=== PATIENT | male | born 1990 | race Caucasian/White ===

== ENCOUNTER 2019-07-17 09:51 | Observation (INO) | payer OTHER ==
[~2019-07-17] VITALS: Ht 185.4 cm; Wt 90.6 kg
[2019-07-17 10:04] LABS: PCO2 Arterial 14.6 mmHg (35-45); PO2 Arterial 167 mmHg (80-100); pH Blood Arterial 7.66 (7.35-7.45)
[2019-07-17 10:10] LABS: BASOPHILS ABSOLUTE AUTO 0.07 K/mm3 (0.00-0.23); BASOPHILS PERCENT AUTO 1 % (0-2); EOSINOPHILS ABSOLUTE AUTO 0.56 K/mm3 (0.00-0.68); EOSINOPHILS PERCENT AUTO 4 % (0-6); Hematocrit 49.6 % (37.0-53.0); Hemoglobin 17.3 g/dL (13.5-17.5); IMMATURE GRAN ABSOLUTE AUTO 0.15 K/mm3 (0.00-0.10); IMMATURE GRAN PERCENT AUTO 1 % (0-1); LYMPHOCYTES ABSOLUTE AUTO 4.94 K/mm3 (0.84-5.20); LYMPHOCYTES PERCENT AUTO 37 % (21-46); MONOCYTES PERCENT AUTO 11 % (4-13); Mean Corpuscular HGB Conc 34.9 g/dL (31.5-36.5); Mean Corpuscular Volume 92 fL (80-100); Mean Platelet Volume 8.9 fL (9.1-12.4); NEUTROPHILS PERCENT AUTO 47 % (41-73); Platelet Count 351 K/mm3 (150-400); RDW Coefficient Variation 12.7 % (11.7-14.2); RDW Standard Deviation 43.1 fL (35.1-46.3); White Blood Cell Count 13.32 K/mm3 (4.00-11.30)
[2019-07-17 10:22] LABS: Anion Gap 12 mmol/L (6-16); Blood Urea Nitrogen 11 mg/dL (8-24); Bun/Creatinine Ratio 12.2 (12.0-20.0); CO2, Blood 18 mmol/L (21-32); Calcium, Blood 9.7 mg/dL (8.5-10.1); Chloride, Blood 108 mmol/L (98-108); Glomerular Filtration Rate >60 (60-); Glucose, Blood 108 mg/dL (70-99); Potassium, Blood 4.1 mmol/L (3.5-5.5); Sodium, Blood 138 mmol/L (136-145)
[2019-07-17] MEDS ORDERED: ALBU90OI INH (13:51)
[2019-07-17] MEDS ORDERED: BUDE10.22 INH (13:52)
--- NOTE | 2019-07-17 14:35 | NUR ---
PATIENT TO THE FLOOR, WEIGHED. HE IS ALERT AND ORIENTED, PLEASANT, AND APPROPRIATE. NO ACUTE CONCERNS FROM THE PATIENT HE STATES THAT HE EXPECTS TO BE HERE OVERNIGHT. TELEMETRY BOX IS IN PLACE, PATIENT IS AWARE THAT HE IS NOT ABLE TO GO OUTSIDE AND SMOKE. HE IS A CURRENT 3/4 PPD SMOKER, AND HAS NICOTINE GUM ORDERED BY DR. FRIAS. PATIENT IS AWARE. RESPIRATORY PANEL TO BE COLLECTED, AND PATIENT WILL BE STARTED ON THE ONE BAG OF FLUIDS THAT IS ORDERED. HE IS INDEPENDENT IN THE ROOM AND VERY POLITE. CURRENTLY STATES HE HAS NO APPETITE BUT DOES NOT KNOW WHY. HE HAS BEEN OUT OF HIS HOME MEDICATIONS FOR A MONTH AND STATES HE HAS BEEN TRYING TO ESTABLISH WITH A PRIMARY BUT HAS BEEN BOOKED OUT OVER 3 MONTHS TIME MULTIPLE TIMES.
[2019-07-17 16:35] LABS: Adenovirus Not Detected (NOT DETECT); Bordetella pertussis Not Detected (NOT DETECT); Chlamydophila pneumoniae Not Detected (NOT DETECT); Coronavirus 229E Not Detected (NOT DETECT); Coronavirus HKU1 Not Detected (NOT DETECT); Coronavirus NL63 Not Detected (NOT DETECT); Coronavirus OC43 Not Detected (NOT DETECT); Human Metapneumovirus Not Detected (NOT DETECT); Human Rhinovirus/Enterovirus Not Detected (NOT DETECT); Influenza A Not Detected (NOT DETECT); Influenza A/2009-H1 Not Detected (NOT DETECT); Influenza A/H1 Not Detected (NOT DETECT); Influenza A/H3 Not Detected (NOT DETECT); Influenza B Not Detected (NOT DETECT); Mycoplasma pneumoniae Not Detected (NOT DETECT); Parainfluenza Virus 1 Not Detected (NOT DETECT); Parainfluenza Virus 2 Not Detected (NOT DETECT); Parainfluenza Virus 3 Not Detected (NOT DETECT); Parainfluenza Virus 4 Not Detected (NOT DETECT); Respiratory Syncytial Virus Not Detected (NOT DETECT)
--- NOTE | 2019-07-17 16:53 | NUR ---
SHIFT SUMMARY PATIENT PLEASANT. RESPIRATORY PANEL CAME BACK NEGATIVE. NO ACUTE CONCERNS. NO SHORTNESS OF BREATH SINCE ARRIVING TO THE FLOOR. TELEMETRY IN PLACE. PATIENT IS INDEPENDENT IN THE ROOM. NICOTINE GUM AVAILABLE Q2 PRN. PATIENT IS AWARE THAT THIS IS AVAILABLE IF HE DOES GET A CRAVING. PATIENT IS AWARE THAT HE IS NOT CURRENTLY SUPPOSED TO GO OUTSIDE AND SMOKE THIS MAY TRIGGER ANOTHER ATTACK. HE IS A 3/4 PPD SMOKER. HE ALSO STATES THAT HE DOES NOT DRINK ALCOHOL MINUS 1-2 TIMES A YEAR. DENIES ANY NUMBNESS OR TINGLING. LUNGS SOUND CLEAR THROUGHOUT. NO CURRENT ACUTE CONCERNS.
--- NOTE | 2019-07-17 18:27 | NUR ---
patient started complaining of significant l lower lobe pain under his nipple. patient is now having a breathing treatment. telemetry noted no change in rate or rhythm when the pain started. listened to the patient's lungs and there was significant wheezes and tightness in the left lower lobe. called for breathing treatment. patient became audibly wheezy and tight throughout.
--- NOTE | 2019-07-17 21:23 | NUR ---
PATIENT RESTING QUIETLY IN BED. C/O PAIN TO CHEST WITH DEEP BREATH, WHEEZES T/O CONTINUES. UP IN ROOM AND ON ROOM ARE WITHOUT DIFFICULTY.
[2019-07-18 04:41] LABS: Hematocrit 46.8 % (37.0-53.0); Hemoglobin 15.9 g/dL (13.5-17.5); Mean Corpuscular HGB 31.7 pg (26.0-34.0); Mean Corpuscular Volume 93 fL (80-100); Mean Platelet Volume 9.1 fL (9.1-12.4); Platelet Count 291 K/mm3 (150-400); Red Blood Cell Count 5.01 M/mm3 (4.30-5.90)
--- NOTE | 2019-07-18 05:54 | NUR ---
SUMMARY PATIENT RESTING QUIETLY T/O NIGHT. VERBALIZED THAT HE DIDN'T SLEEP DUE TO STAFF BEING IN HIS ROOM FREQUENTLY. LUNG SOUNDS CONTINUE TO HAVE WHEEZES T/O MAINTAINING GOOD BIOX T/O NIGHT. PATIENT ABLE TO AMB IN ROOM WITHOUT DIFFICULTY.
--- NOTE | 2019-07-18 10:34 | NUR ---
POST SHOWER SOB PT LUNGS WHERE MILDLY WHEEZEY T/O. HE HAD GONE DOWNSTAIRS TO GET AN ORANGE JUICE. RETURNED AND TOOK A SHOWER. HE STARTED TO STRUGGLE. RESP RATE INCREASED INTO THE 50'S. SAT 100% RA. FACE DUSKY. AUDIBLE WHEEZES. CALLED FOR STAT BREATHING TREATMENT. CRISSY TAPIA CAME FOR BREATHING TREATMENT. DR LANIER CALLED AFTER FIRST BREATHING TREATMENT WAS NOT EFFECTIVE. ORDER RECEIVED. PT C/O OF LEFT LOWER RIB CAGE/LUQ PAIN THAT INCREASED WITH WORK OF BREATHING. ONE HOUR TIM STARTED. PT ALMOST IMMEDIATELY RELAXED. COOL CLOTH PLACED ON BACK OF HIS NECK FOR COMFORT. PT CURRENTLY RESTING, LAYING BACK COMFORTABLY BREATHING. COMPLETEING THE HOUR NEB. CONTINUE POT.
[2019-07-18] MEDS ORDERED: PRED20 PO (16:27)
--- NOTE | 2019-07-18 16:57 | NUR ---
DISCHARGE HOME PT DISCHARGED HOME. PT STATED HE WAS INITIATING CARE WITH [facility]. CALLED THE CLINIC TO GET A F/U APPOINTMENT. NO NEW PT PACKET HAS BEEN RECEIVED. CALLED [facility]. THEY WOULDN'T SO AN APPOINTMENT UNTIL PT CAME IN PHYSICALLY WITH HIS INSURANCE CARD. TOLD PT. HE WILL US THE [facility] FOR REFILLS UNTIL ABLE TO BE SEEN MY MD. CONTINUE POT.
== END 2019-07-18 16:54 | disposition home or self-care (01) ==
LOC: ER 09:51 → PCU 09:52
PROVIDERS: Emergency Medicine; Nurse Practitioner Acute Care; ADMIT Internal Medicine
DX: J96.01 Acute respiratory failure with hypoxia (principal); J45.901 Unspecified asthma with (acute) exacerbation; F17.210 Nicotine dependence, cigarettes, uncomplicated; F41.9 Anxiety disorder, unspecified; D72.829 Elevated white blood cell count, unspecified; E87.3 Alkalosis; Z79.899 Other long term (current) drug therapy; Z86.19 Personal history of other infectious and parasitic diseases
CPT/HCPCS: 0099U; 36415; 36600; 71045; 80048; 82803; 85025; 85027; 93005; 93010; 94640; 94644; 94760; 96361; 96365; 96366; 96375; 99285-25; A9270; G0378; J2060; J2930; J3475; J7030; J7512

== ENCOUNTER 2019-10-10 07:45 | Observation (INO) | payer OTHER ==
[~2019-10-10] VITALS: Ht 172.7 cm; Wt 91.3 kg
[~2019-10-10 07:45] MED LIST: ALBU90OI INH; BUDE10.22 INH; PRED20 PO
[2019-10-10 08:01] LABS: BASOPHILS ABSOLUTE AUTO 0.08 K/mm3 (0.00-0.23); BASOPHILS PERCENT AUTO 1 % (0-2); EOSINOPHILS ABSOLUTE AUTO 0.42 K/mm3 (0.00-0.68); EOSINOPHILS PERCENT AUTO 4 % (0-6); Hematocrit 51.2 % (37.0-53.0); Hemoglobin 17.5 g/dL (13.5-17.5); IMMATURE GRAN ABSOLUTE AUTO 0.08 K/mm3 (0.00-0.10); IMMATURE GRAN PERCENT AUTO 1 % (0-1); LYMPHOCYTES ABSOLUTE AUTO 4.23 K/mm3 (0.84-5.20); LYMPHOCYTES PERCENT AUTO 42 % (21-46); MONOCYTES ABSOLUTE AUTO 1.14 K/mm3 (0.16-1.47); MONOCYTES PERCENT AUTO 11 % (4-13); Mean Corpuscular HGB Conc 34.2 g/dL (31.5-36.5); Mean Corpuscular Volume 94 fL (80-100); NEUTROPHILS PERCENT AUTO 41 % (41-73); Platelet Count 297 K/mm3 (150-400); RDW Coefficient Variation 12.1 % (11.7-14.2); RDW Standard Deviation 42.2 fL (35.1-46.3); Red Blood Cell Count 5.47 M/mm3 (4.30-5.90); White Blood Cell Count 10.15 K/mm3 (4.00-11.30)
[2019-10-10 08:16] LABS: Alanine Aminotransfer (ALT/SGP 76 U/L (12-78); Albumin, Blood 4.2 g/dL (3.4-5.0); Alk Phos 111 U/L (50-136); Anion Gap 10 mmol/L (6-16); Aspartate Aminotrans (AST/SGOT 63 U/L (12-37); Bilirubin, Total 0.6 mg/dL (0.1-1.0); Blood Urea Nitrogen 15 mg/dL (8-24); Bun/Creatinine Ratio 16.2 (12.0-20.0); CO2, Blood 23 mmol/L (21-32); Calcium, Blood 9.5 mg/dL (8.5-10.1); Chloride, Blood 107 mmol/L (98-108); Creatinine, Blood 0.93 mg/dL (0.60-1.20); Globulin, Blood 4.3 g/dL (2.2-4.0); Glomerular Filtration Rate >60 (60-); Glucose, Blood 109 mg/dL (70-99); Potassium, Blood 4.3 mmol/L (3.5-5.5); Sodium, Blood 140 mmol/L (136-145); Total Protein, Blood 8.5 g/dL (6.4-8.2)
[2019-10-10 12:35] LABS: U Amphetamine Screen Not Detected; U Barbituate Screen Not Detected; U Benzodiazapine Screen DETECTED; U Buprenorphine Screen Not Detected; U Cannabinoids Screen DETECTED; U Cocaine Screen Not Detected; U Methadone Screen Not Detected; U Methamphetamine Screen Not Detected; U Opiates Screen Not Detected; U Oxycodone Screen Not Detected; U Phencyclidine Screen Not Detected; U Propoxyphene Screen Not Detected
--- NOTE | 2019-10-10 15:11 | NUR ---
TRANSFER TO PCU PT CALLED TO REQUEST RT TREATMENT AND SHORTLY AFTER BECAME VERY SOB, SEVERE ASTHMA ATTACK. RR 24 BUT O2 SATS AT 99% ON ROOM AIR. RT AT BEDSIDE, DR SHABAZZ CAME TO BEDSIDE, PT VERY ANXIOUS AND HUNCHED. VERY LOUD BREATHING AND ONLY ABLE TO GET ONE WORD OUT AT A TIME. DR SHABAZZ ORDERED PCU TRANSFER. PT GIVEN IV TORADOL FOR CHEST PAIN (DR SHABAZZ INFORMED OF CHEST PAIN), WHICH HELPED. REPORT GIVEN TO MARIA R PT TAKEN TO PCU 15 BY TOMAS
--- NOTE | 2019-10-10 18:19 | NUR ---
SHIFT SUMMARY. NO ACUTE NEGATIVE CHANGES NOTED SINCE PT TRANSFERED TO PCU. PT'S BREATHING HAS GREATLY IMPROVED, NO WHEEZES HEARD UPON AUSCULTATION. PT MEDICATED FOR ANXEITY PER EMAR. PT WAS ON BIPAP APROX 1 HOUR THEN SWITCHED TO RA WITH O2 SATS >94%. PT'S VS STABLE AT THIS TIME. PT IND IN THE ROOM. CALL LIGHT IN REACH, WILL CONTINUE TO MONITOR UNTIL REPORT IS GIVEN TO ONCOMING RN.
--- NOTE | 2019-10-11 04:56 | NUR ---
ASSUMED CARE AT 1900. CALM EASY BREATHING ALL NOC UNTIL 324. INSPIRATORY AND EXPIRATORY WZ T/O BOTH LUNGS WHEN THIS RN LISTENED. RA SATS WNL . ON DEEP INSPIRATION REPORTS MILD MIDSTERNAL CHEST PRESSURE/PAIN. USUALLY NOT NOTICED W/ NORMAL BREATHING. REFUSED TORDOL. "IT DIDNT WORK FOR ME". SLEEPING WELL CALM AND QUIET DARK ROOM. WHEN AT 324 OOB TO USE URINAL AND REMOVE SCDS W/ DIFFICULTY, SEVERE ASMATIC TACHEPNEA AND WHEEZING WAS OCCURING AND ESCALATING QUICKLY. SEVERE AUDIBLE WZ AND BREATHING TX IMMEDIATE AND FAIRLY CONTINUOUS UNTIL PLACED CALL TO DR SR AND COMING TO ROOM QUICKLY, A CONTINUOUS NEB ORDERED. ALSO ATIVAN IV GIVEN MIKE. SOON SOLUMEDROL IV. AGREES TO WEAR BIPAP FOR ABOUT 1 HR . NOW ON RA ASTHMA EPISODE SUBSIDING. NOTED ST TO 140 THEN BACK DOWN TO APPROX 104. THRU MOST OF NOC IN 90'S. REPORTS INSPIRATORY CP/PRESSURE MID STERNAL BECAME A 10/10. CONT TO REFUSE TORDOL AND REQUESTS TYLENOL FROM AND GIVEN.WILL CHECK BACK TO EVAL RESULTS
--- NOTE | 2019-10-11 08:37 | NUR ---
AM NOTE... ASSUMED CARE OF PT APROX 0700. PT IS A&Ox4 AND IND IN THE ROOM. PT WAS ADMITTED FOR ASTHMA EXAC. PT IS ON RA WITH O2 SATS >94%. L/S EXP AND INSP WHEEZES T/O. PT IS IN NSR IN THE 90'S, NO EDEMA NOTED ON ASSESSMENT. CALL LIGHT IN REACH, WILL CONTINUE TO MONITOR.
--- NOTE | 2019-10-11 17:50 | NUR ---
SHIFT SUMMARY... NO ACUTE NEGATIVE CHANGES NOTED THIS SHIFT. PT HAS BEEN ON RA T/O SHIFT. PT HAD AN EPISODE OF SOB WHICH HE CALLED AN "ATTACK." RT WAS CALLED AND A BREATHING TX WAS GIVEN. PT RECOVERED WELL. PT GOT UP AND WALKED AROUND THE UNTIL 2 TIMES THIS SHIFT. PT'S VS STABLE. CALL LIGHT IN REACH, WILL CONTINUE TO MONITOR UNTIL REPORT IS GIVEN TO ONCOMING RN.
--- NOTE | 2019-10-12 06:00 | NUR ---
ASSUMED CARE AT 0100. SEE ASSESSMENT FOR GENERAL REVIEW. ALLOWED TO SLEEP ALL NOC. AWAKE THIS AM W/ C/O LT CHEST SORENESS ON DEEP INSPIRAATION ONLY. TYLENOL ONLY REQUESTED AND GOOD RELIEF. NO ACUTE CHANGE OR BREATHING INPAIRMENT. NO ASTHMA FLARE UP./ NO ANXIETY REPORTED. SR MOSTLY RARE ST WHEN OOB
--- NOTE | 2019-10-12 12:44 | NUR ---
TRANSFER RECEIVED TO ROOM 210 VIA W/C. AMBULATING IN ROOM, SPEAKING IN FULL SENTENCES AND APPEARING IN NO ACUTE DISTRESS. REPORTS NO DYSPNEA OR CHEST DISCOMFORT. ORIENTED TO ROOM, CALL SYSTEM.
--- NOTE | 2019-10-12 16:36 | NUR ---
AMA PT LEFT AMA AT APROX 1632. PT STATES HE HAS TO LEAVE IN ORDER TO KEEP HIS JOB. EDUCATED ON THE RISKS OF LEAVING/BENNEFITS OF STAYING AND PT VERBALIZED UNDERSTANDING. PT EDUCATED ON THE NEED TO FOLLOW UP WITH [facility] TO ESTABLISH WITH PRIMARY CARE, VERBALIZED UNDERSTANDING. IV REMOVED, PT TOLERATED WELL. DOES NOT APPEAR TO BE IN ANY RESPIRATORY DISTRESS AT TIME OF DISCARGE.
== END 2019-10-12 16:33 | disposition left against medical advice (07) ==
LOC: ER 07:45 → MEDS 07:46 → PCU 07:46 → MEDS 11:44 → PCU 15:01 → SURS 10-12 12:37
PROVIDERS: Emergency Medicine; Nurse Practitioner Acute Care; ADMIT Family Medicine
DX: J45.901 Unspecified asthma with (acute) exacerbation (principal); J96.00 Acute respiratory failure, unspecified whether with hypoxia or hypercapnia; B18.2 Chronic viral hepatitis C; F17.200 Nicotine dependence, unspecified, uncomplicated; Z79.899 Other long term (current) drug therapy; Z79.51 Long term (current) use of inhaled steroids
CPT/HCPCS: 71045; 80053; 85025; 93005; 93010; 94640; 94644; 94660; 94762; 96361; 96365; 96366; 96375; 96376; 99285-25; A9270; G0378; J1885; J2060; J2930; J3475; J7030

== ENCOUNTER 2019-12-17 05:34 | Emergency (ER) | payer OTHER ==
[~2019-12-17] VITALS: Ht 185.4 cm; Wt 81.7 kg
[2019-12-17 05:56] LABS: BASOPHILS ABSOLUTE AUTO 0.04 K/mm3 (0.00-0.23); BASOPHILS PERCENT AUTO 1 % (0-2); EOSINOPHILS ABSOLUTE AUTO 0.04 K/mm3 (0.00-0.68); EOSINOPHILS PERCENT AUTO 1 % (0-6); Hematocrit 46.9 % (37.0-53.0); Hemoglobin 16.4 g/dL (13.5-17.5); IMMATURE GRAN ABSOLUTE AUTO 0.06 K/mm3 (0.00-0.10); IMMATURE GRAN PERCENT AUTO 1 % (0-1); LYMPHOCYTES ABSOLUTE AUTO 1.05 K/mm3 (0.84-5.20); LYMPHOCYTES PERCENT AUTO 15 % (21-46); MONOCYTES ABSOLUTE AUTO 1.25 K/mm3 (0.16-1.47); MONOCYTES PERCENT AUTO 18 % (4-13); Mean Corpuscular HGB 32.2 pg (26.0-34.0); Mean Corpuscular Volume 92 fL (80-100); Mean Platelet Volume 9.1 fL (9.1-12.4); NEUTROPHILS ABSOLUTE AUTO 4.62 K/mm3 (1.96-9.15); NEUTROPHILS PERCENT AUTO 65 % (41-73); Platelet Count 174 K/mm3 (150-400); RDW Coefficient Variation 13.1 % (11.7-14.2); RDW Standard Deviation 44.5 fL (35.1-46.3); White Blood Cell Count 7.06 K/mm3 (4.00-11.30)
[2019-12-17 06:22] LABS: Alanine Aminotransfer (ALT/SGP 64 U/L (12-78); Albumin, Blood 3.7 g/dL (3.4-5.0); Albumin/Globulin Ratio 0.9 (0.8-1.8); Alk Phos 101 U/L (50-136); Anion Gap 10 mmol/L (6-16); Aspartate Aminotrans (AST/SGOT 71 U/L (12-37); Bilirubin, Total 0.5 mg/dL (0.1-1.0); Blood Urea Nitrogen 15 mg/dL (8-24); CO2, Blood 20 mmol/L (21-32); Chloride, Blood 107 mmol/L (98-108); Creatinine, Blood 0.94 mg/dL (0.60-1.20); Glomerular Filtration Rate >60 (60-); Glucose, Blood 114 mg/dL (70-99); Magnesium, Blood 1.7 mg/dL (1.6-2.4); Potassium, Blood 3.5 mmol/L (3.5-5.5); Sodium, Blood 137 mmol/L (136-145); Total Protein, Blood 7.7 g/dL (6.4-8.2); Troponin I <0.015 ng/mL (0.000-0.040)
[2019-12-17 07:19] LABS: Adenovirus Not Detected (NOT DETECT); Bordetella pertussis Not Detected (NOT DETECT); Chlamydophila pneumoniae Not Detected (NOT DETECT); Coronavirus 229E Not Detected (NOT DETECT); Coronavirus HKU1 Not Detected (NOT DETECT); Coronavirus NL63 Not Detected (NOT DETECT); Coronavirus OC43 Not Detected (NOT DETECT); Human Metapneumovirus Not Detected (NOT DETECT); Human Rhinovirus/Enterovirus Not Detected (NOT DETECT); Influenza A/2009-H1 Detected (NOT DETECT); Influenza A/H1 Not Detected (NOT DETECT); Influenza A/H3 Not Detected (NOT DETECT); Influenza B Not Detected (NOT DETECT); Mycoplasma pneumoniae Not Detected (NOT DETECT); Parainfluenza Virus 1 Not Detected (NOT DETECT); Parainfluenza Virus 2 Not Detected (NOT DETECT); Parainfluenza Virus 3 Not Detected (NOT DETECT); Parainfluenza Virus 4 Not Detected (NOT DETECT); Respiratory Syncytial Virus Not Detected (NOT DETECT)
[2019-12-17] MEDS ORDERED: Prednisone20 MG PO (08:48)
[2019-12-17] MEDS ORDERED: ALBU90OI INH (08:48)
== END 2019-12-17 09:03 | disposition home or self-care (01) ==
LOC: ER 05:34
PROVIDERS: Emergency Medicine
DX: J45.901 Unspecified asthma with (acute) exacerbation (principal); Z79.899 Other long term (current) drug therapy; F17.210 Nicotine dependence, cigarettes, uncomplicated
CPT/HCPCS: 0099U; 71045; 80053; 83735; 83880; 84484; 85025; 93005; 93010; 94644; 96374; 99285-25; J2930

== ENCOUNTER 2020-03-05 06:15 | Emergency (ER) | payer OTHER ==
[~2020-03-05] VITALS: Ht 182.9 cm; Wt 90.7 kg
[~2020-03-05 06:15] MED LIST changes: +Prednisone20 MG PO
[2020-03-05 06:31] LABS: BASOPHILS ABSOLUTE AUTO 0.05 K/mm3 (0.00-0.23); BASOPHILS PERCENT AUTO 1 % (0-2); EOSINOPHILS ABSOLUTE AUTO 0.62 K/mm3 (0.00-0.68); EOSINOPHILS PERCENT AUTO 6 % (0-6); Hematocrit 47.7 % (37.0-53.0); Hemoglobin 16.6 g/dL (13.5-17.5); IMMATURE GRAN ABSOLUTE AUTO 0.07 K/mm3 (0.00-0.10); IMMATURE GRAN PERCENT AUTO 1 % (0-1); LYMPHOCYTES ABSOLUTE AUTO 3.27 K/mm3 (0.84-5.20); LYMPHOCYTES PERCENT AUTO 33 % (21-46); MONOCYTES ABSOLUTE AUTO 1.18 K/mm3 (0.16-1.47); MONOCYTES PERCENT AUTO 12 % (4-13); Mean Corpuscular HGB 32.1 pg (26.0-34.0); Mean Corpuscular HGB Conc 34.8 g/dL (31.5-36.5); Mean Corpuscular Volume 92 fL (80-100); Mean Platelet Volume 9.2 fL (9.1-12.4); NEUTROPHILS ABSOLUTE AUTO 4.77 K/mm3 (1.96-9.15); NEUTROPHILS PERCENT AUTO 48 % (41-73); Platelet Count 239 K/mm3 (150-400); RDW Coefficient Variation 12.7 % (11.7-14.2); RDW Standard Deviation 43.3 fL (35.1-46.3); Red Blood Cell Count 5.17 M/mm3 (4.30-5.90); White Blood Cell Count 9.96 K/mm3 (4.00-11.30)
[2020-03-05 06:49] LABS: Anion Gap 8 mmol/L (6-16); Blood Urea Nitrogen 13 mg/dL (8-24); Bun/Creatinine Ratio 13.8 (12.0-20.0); CO2, Blood 21 mmol/L (21-32); Calcium, Blood 8.7 mg/dL (8.5-10.1); Chloride, Blood 109 mmol/L (98-108); Creatinine, Blood 0.94 mg/dL (0.60-1.20); Glomerular Filtration Rate >60 (60-); Glucose, Blood 95 mg/dL (70-99); Potassium, Blood 4.4 mmol/L (3.5-5.5); Sodium, Blood 138 mmol/L (136-145)
[2020-03-05] MEDS ORDERED: ALBU90OI INH (08:14)
[2020-03-05] MEDS ORDERED: ALBU2.5V5 INH (08:14)
[2020-03-05] MEDS ORDERED: PRED20 PO (08:14)
== END 2020-03-05 08:54 | disposition home or self-care (01) ==
LOC: ER 06:15
PROVIDERS: Emergency Medicine
DX: J45.901 Unspecified asthma with (acute) exacerbation (principal); Z79.899 Other long term (current) drug therapy; Z87.891 Personal history of nicotine dependence
CPT/HCPCS: 36415; 71045; 80048; 85025; 94644; 96365; 96375; 99285-25; J2930; J3475

== ENCOUNTER 2021-08-31 02:31 | Inpatient (IN) | payer OTHER ==
[~2021-08-31] VITALS: Ht 182.9 cm; Wt 93.0 kg
[~2021-08-31 02:31] MED LIST changes: +ALBU2.5V5 INH
[2021-08-31 04:22] LABS: Influenza A, PCR NEGATIVE (NEGATIVE); Influenza B, PCR NEGATIVE (NEGATIVE); Resp Syncytial Virus, PCR NEGATIVE (NEGATIVE); SARS-Cov-2 (COVID-19) PCR, MMC NEGATIVE (NEGATIVE)
--- NOTE | 2021-08-31 06:09 | NUR ---
ASSUMPTION OF CARE NOTE THIS NURSE ASSUMED CARE AT 0545, PT CAME TO PCU ON RA, WHEEZES NOTED BOTH ON INSPIRATION AND EXPIRATION. RESPIRATORY THERAPY CAME ARRIVED TO BEDSIDE AND PUT PT ON CPAP, PRESSURE 7, FIO2 30%. SPO2 99%. PT REPORTED PAIN IN LEFT SIDE, MEDICATED PER EMAR. CASEWORK SUPERVISOR IN PLACE, PER REPORT PT IS SINUS TACH 103. PT IS STEADY ON FEET AND INDEPENDENT BUT WAS ASKED BY THIS NURSE TO UTILIZE BEDSIDE URINAL TO CONSERVE ENERGY/DUE TO BEING ON CPAP. PT IS PLEASANT AND COOPERATIVE WITH CARE, IS ALERT AND ORIENTED X4. IV LOCATED IN LEFT AC IS SALINE LOCKED, NON-SCID SOCKS PROVIDED AND PT WAS ORIENTED TO PCU UNIT, ROOM, AND CALL LIGHT. BED IS IN LOW, CALL LIGHT IN REACH. WILL CONTINUE TO MONITOR.
[2021-08-31 06:30] LABS: BASOPHILS ABSOLUTE AUTO 0.04 K/mm3 (0.00-0.23); BASOPHILS PERCENT AUTO 0 % (0-2); EOSINOPHILS ABSOLUTE AUTO 0.05 K/mm3 (0.00-0.68); EOSINOPHILS PERCENT AUTO 0 % (0-6); Hematocrit 46.8 % (37.0-53.0); Hemoglobin 16.2 g/dL (13.5-17.5); IMMATURE GRAN ABSOLUTE AUTO 0.13 K/mm3 (0.00-0.10); IMMATURE GRAN PERCENT AUTO 1 % (0-1); LYMPHOCYTES ABSOLUTE AUTO 0.87 K/mm3 (0.84-5.20); LYMPHOCYTES PERCENT AUTO 5 % (21-46); MONOCYTES ABSOLUTE AUTO 0.62 K/mm3 (0.16-1.47); MONOCYTES PERCENT AUTO 4 % (4-13); Mean Corpuscular HGB 32.8 pg (26.0-34.0); Mean Corpuscular HGB Conc 34.6 g/dL (31.5-36.5); Mean Corpuscular Volume 95 fL (80-100); Mean Platelet Volume 9.6 fL (9.1-12.4); NEUTROPHILS ABSOLUTE AUTO 15.02 K/mm3 (1.96-9.15); NEUTROPHILS PERCENT AUTO 90 % (41-73); Platelet Count 246 K/mm3 (150-400); RDW Coefficient Variation 12.6 % (11.7-14.2); RDW Standard Deviation 43.8 fL (35.1-46.3); Red Blood Cell Count 4.94 M/mm3 (4.30-5.90); White Blood Cell Count 16.73 K/mm3 (4.00-11.30)
[2021-08-31 08:51] LABS: Anion Gap 8 mmol/L (6-16); Blood Urea Nitrogen 17 mg/dL (8-24); Bun/Creatinine Ratio 17.2 (12.0-20.0); CO2, Blood 23 mmol/L (21-32); Calcium, Blood 8.7 mg/dL (8.5-10.1); Chloride, Blood 106 mmol/L (98-108); Creatinine, Blood 0.99 mg/dL (0.60-1.20); Glomerular Filtration Rate >60 (60-); Glucose, Blood 130 mg/dL (70-99); Potassium, Blood 3.5 mmol/L (3.5-5.5); Sodium, Blood 137 mmol/L (136-145)
[2021-08-31 11:22] LABS: Source, Urine Clean Catch
[2021-08-31 11:34] LABS: Bilirubin, Urine Neg (Neg); Blood, Urine Neg (Neg); Glucose Qualitative, Urine Neg (Neg); Ketones, Urine 2+ (Neg); Leukocyte Esterase, Urine 1+ (Neg); Nitrite, Urine Neg (Neg); Protein, Urine 2+ (Neg); Urobilinogen, Urine NORM (Normal)
[2021-08-31 12:32] LABS: Appearance, Urine Hazy (Clear); Color, Urine Amber (P-Yellow)
[2021-08-31 12:33] LABS: Bacteria Few /hpf; Mucus Heavy (0-Heavy); Red Blood Cells, Urine 0-2 /hpf (0-2); Squamous Epithelial Cells Few /hpf (Few)
[2021-08-31 13:00] LABS: U Cannabinoids Screen DETECTED; U Opiates Screen DETECTED
[2021-08-31 13:01] LABS: U Amphetamine Screen Not Detected; U Barbituate Screen Not Detected; U Benzodiazapine Screen Not Detected; U Buprenorphine Screen Not Detected; U Cocaine Screen Not Detected; U Methadone Screen Not Detected; U Methamphetamine Screen Not Detected; U Oxycodone Screen Not Detected; U Phencyclidine Screen Not Detected; U Propoxyphene Screen Not Detected
--- NOTE | 2021-08-31 18:28 | NUR ---
SHIFT SUMMARY PT HAS BEEN RESTING IN BED TODAY. PT HAS SAT UP AT THE EDGE OF BED AND LAID IN BED. PT HAD MULTIPLE EPISODES OF INCREASED WORK OF BREATHING WITH INCREASED RESPIRATORY RATE, PT WAS TREATED WITH ANXIOLYTICS, POSITIONING, AND THERAPEUTIC COMMUNICATION. PT HAS BEEN COOPERATIVE AND CALLS APPROPRIATELY.
--- NOTE | 2021-09-01 03:00 | NUR ---
PATIENT C/O MIDSTERNAL CHEST PAIN, RESPIRATIONS INCREASED 16 TO 34 PATIENT WAS PUT BACK ON THE CPAP EDUCATED ON TAKING LONG SLOW BREATHES, RESPIRATORY WAS CALLED AND PATIENT WAS GIVEN BREATHING TREATMENT, AND ATIVAN GIVEN PATIENT EXHIBITING INCREASED ANXITET R/T BREATHING.
[2021-09-01 03:44] LABS: BASOPHILS ABSOLUTE AUTO 0.03 K/mm3 (0.00-0.23); BASOPHILS PERCENT AUTO 0 % (0-2); EOSINOPHILS PERCENT AUTO 0 % (0-6); Hematocrit 47.3 % (37.0-53.0); Hemoglobin 16.2 g/dL (13.5-17.5); IMMATURE GRAN ABSOLUTE AUTO 0.22 K/mm3 (0.00-0.10); IMMATURE GRAN PERCENT AUTO 1 % (0-1); LYMPHOCYTES ABSOLUTE AUTO 1.64 K/mm3 (0.84-5.20); LYMPHOCYTES PERCENT AUTO 9 % (21-46); MONOCYTES ABSOLUTE AUTO 0.94 K/mm3 (0.16-1.47); MONOCYTES PERCENT AUTO 5 % (4-13); Mean Corpuscular HGB 32.9 pg (26.0-34.0); Mean Corpuscular HGB Conc 34.2 g/dL (31.5-36.5); Mean Corpuscular Volume 96 fL (80-100); Mean Platelet Volume 9.1 fL (9.1-12.4); NEUTROPHILS ABSOLUTE AUTO 16.36 K/mm3 (1.96-9.15); NEUTROPHILS PERCENT AUTO 85 % (41-73); Platelet Count 239 K/mm3 (150-400); RDW Coefficient Variation 12.8 % (11.7-14.2); RDW Standard Deviation 45.6 fL (35.1-46.3); Red Blood Cell Count 4.93 M/mm3 (4.30-5.90); White Blood Cell Count 19.19 K/mm3 (4.00-11.30)
[2021-09-01 04:10] LABS: Alanine Aminotransfer (ALT/SGP 34 U/L (12-78); Albumin, Blood 3.7 g/dL (3.4-5.0); Albumin/Globulin Ratio 0.8 (0.8-1.8); Alk Phos 95 U/L (50-136); Anion Gap 10 mmol/L (6-16); Aspartate Aminotrans (AST/SGOT 27 U/L (12-37); Bilirubin, Total 0.8 mg/dL (0.1-1.0); Blood Urea Nitrogen 19 mg/dL (8-24); Bun/Creatinine Ratio 23.6 (12.0-20.0); CO2, Blood 20 mmol/L (21-32); Calcium, Blood 9.2 mg/dL (8.5-10.1); Chloride, Blood 106 mmol/L (98-108); Creatinine, Blood 0.81 mg/dL (0.60-1.20); Globulin, Blood 4.4 g/dL (2.2-4.0); Glomerular Filtration Rate >60 (60-); Glucose, Blood 144 mg/dL (70-99); Magnesium, Blood 2.2 mg/dL (1.6-2.4); Sodium, Blood 136 mmol/L (136-145); Total Protein, Blood 8.1 g/dL (6.4-8.2)
--- NOTE | 2021-09-01 09:25 | NUR ---
PT WAS VERY ANXIOUS AND HAD PANIC ATTACK AROUND 0915, ATIVAN 2MG GIVEN WITH LITTLE EFFECT. MD NOTIFIED AND 2MG MORPHINE ADDED. PT RR HAS GONE DOWN AND PT APPEARS MORE COMFORTABLE NOW WITH RR 20-24. OXYGEN 94% ON CPAP. WHEEZING HEART ESPECIALLY IN LEFT LOBES, RT GAVE BREATHING TX. PT RESTING AND APPEARS MORE COMFORTABLE AT THIS TIME.
--- NOTE | 2021-09-01 16:48 | NUR ---
Pt is A&O x 4, pleasant with cares. Pt is anxious on and off. Pt has panic attack this AM and required 2mg ativan and was still having a hard time breathing, 2mg morphine given with good effect. VSS on RA or CPAP. Pt was on CPAP most of the day. IV solumedrol continued per orders. Tele: /
--- NOTE | 2021-09-02 07:27 | NUR ---
EVENT NOTE PT CALLS AIDE AT APPROXIMATELY 0500 REQUESTING NEEDING BREATHING TREATMENT. RT NOTIFIED. RT ROSS IN ROOM ADMINISTERING TREATMENT AND I ARRIVE SHORTLY AFTER. PT EDGE OF BED, IN TRIPOD POSITION, CPAP IN PLACE, INCREASED RESPIRATIONS, ANXIETY, HR TO 140'S-160'S AND WORK OF BREATHING. 2MG ATIVAN ADMINISTERED. PT CONTINUES TO HAVE ANXIETY AND C/O CP. ADMINISTERED. YUMIKO CHING, ICU CHARGE CHANDRAKANT AND DOCTOR KARLIE IN ROOM ASSISTING. 2MG MORPHINE ADMINISTERED AND TRANSFER TO ICU BED 3 INITIATED. ASSISTED WITH TRANSFER TO ICU. 2MG MORPHINE ADMINISTERED. FATHER OF PT NOTIFIED OF TRANSFER TO ICU. REPORT GIVEN TO OVEN OPERATOR AUTOMATICYUMIKO SINGH.
--- NOTE | 2021-09-02 07:30 | NUR ---
ASSUMED CARE PATIENT LYING IN BED W/ EYES CLOSED. BIPAP IN PLACE. EASILY AROUSABLE FROM SLEEP AND GREETS STAFF UPON ENTERING ROOM. A&O X 4, ANSWERS QUESTIONS APPROPRIATELY AND PROVIDES MEDICAL HISTORY WHEN ASKED. WATER AT BEDSIDE AND TV CURRENTLY ON. 18G IV TO LT AC INF MAGNESIUM 2G. 20G IV TO LT FOREARM SALINE LOCKED, FLUSHES WELL. CALL LIGHT IN REACH. BEDSIDE REPORT COMPLETED W/ MANAGER QUALITY IMPROVEMENT RN.
[2021-09-02 10:10] LABS: HBSAG SCREEN Negative (Negative); HEP B CORE AB, TOT Negative (Negative); HEP C VIRUS AB >11.0 (0.0-0.9)
--- NOTE | 2021-09-02 11:01 | NUR ---
INCREASED WORK OF BREATHING SWITCHED PATIENT FROM BIPAP TO NC @ 3LPM. PATIENT DID NOT TOLERATE WELL W/ TACHYCARDIA IN 150'S, TACHYPNEA IN THE 30'S. PATIENT PLACED BACK ON BIPAP AND BEGAN PULLING TIDAL VOLUMES OVER 1999 AND COMPLAINING OF WORSENING LT SIDED CHEST PAIN WITH BREATHING. ATIVAN 2MG IV, MORPHINE 2MG IV, ALBUTEROL NEB AND DUONEB TREATMENT W/ IMPROVEMENT IN PATIENT ASSESSMENT; HR DECREASED TO 120'S, RR 20'S. PATIENT RESTING W/ BIPAP ON 17/04 RATE 14 AND 60% FIO2. SPO2 98%
[2021-09-02 15:20] LABS: BASOPHILS ABSOLUTE AUTO 0.03 K/mm3 (0.00-0.23); BASOPHILS PERCENT AUTO 0 % (0-2); EOSINOPHILS PERCENT AUTO 0 % (0-6); Hematocrit 42.9 % (37.0-53.0); Hemoglobin 14.8 g/dL (13.5-17.5); IMMATURE GRAN ABSOLUTE AUTO 0.17 K/mm3 (0.00-0.10); IMMATURE GRAN PERCENT AUTO 1 % (0-1); LYMPHOCYTES ABSOLUTE AUTO 0.82 K/mm3 (0.84-5.20); LYMPHOCYTES PERCENT AUTO 5 % (21-46); MONOCYTES ABSOLUTE AUTO 1.07 K/mm3 (0.16-1.47); MONOCYTES PERCENT AUTO 7 % (4-13); Mean Corpuscular HGB 33.1 pg (26.0-34.0); Mean Corpuscular HGB Conc 34.5 g/dL (31.5-36.5); Mean Corpuscular Volume 96 fL (80-100); Mean Platelet Volume 9.3 fL (9.1-12.4); NEUTROPHILS ABSOLUTE AUTO 13.96 K/mm3 (1.96-9.15); NEUTROPHILS PERCENT AUTO 87 % (41-73); Platelet Count 269 K/mm3 (150-400); RDW Coefficient Variation 12.9 % (11.7-14.2); RDW Standard Deviation 46.3 fL (35.1-46.3); Red Blood Cell Count 4.47 M/mm3 (4.30-5.90); White Blood Cell Count 16.05 K/mm3 (4.00-11.30)
[2021-09-02 15:23] LABS: Albumin, Blood 3.3 g/dL (3.4-5.0); Anion Gap 6 mmol/L (6-16); Blood Urea Nitrogen 24 mg/dL (8-24); Bun/Creatinine Ratio 24.3 (12.0-20.0); CO2, Blood 25 mmol/L (21-32); Calcium, Blood 8.4 mg/dL (8.5-10.1); Chloride, Blood 107 mmol/L (98-108); Creatinine, Blood 0.99 mg/dL (0.60-1.20); Glomerular Filtration Rate >60 (60-); Glucose, Blood 148 mg/dL (70-99); Magnesium, Blood 2.8 mg/dL (1.6-2.4); Phosphorus, Blood 3.1 mg/dL (2.5-4.9); Potassium, Blood 3.9 mmol/L (3.5-5.5); Sodium, Blood 138 mmol/L (136-145)
--- NOTE | 2021-09-02 16:59 | NUR ---
Initial Assessment with [facility] Security System Analyst 1. Who did you speak with? Spoke with patient 2. What is the patient's prior level of functions? Independent; patient has a roommate 3. What is the patient's current living situation? Patient lives independently with his roommate. Patient has a safe and stable home with running water, heat electricity, and sewage. No barriers at this time. 4. Is the patient and/or family able to provide transportation to and from doctor's appointments and apple picker prescriptions? Yes 5. Does patient still drive? Yes; patient needs to renew his license 6. POA/PCP/NOK: PCP-Dr. Reynoso from [facility] is PCP. Patient's NOK is his father. 7. Discharge goals: -TBD -DME: TBD -Medication Management Self-management -Preferred Pharmacy: TBD -Housekeeping need: No -Able to cook for self: yes 8. List barriers to discharge -SNF Placement: None -Memory Care: None -Transportation needs: TBD -Financial concerns: TBD -Drug/Alcohol treatment: No -Home Health: None -Hospice: None 9. Discharge Plan:TBD 10. PCP Follow up appointment: Will be scheduled within seven calendar days of discharge.
--- NOTE | 2021-09-02 17:41 | NUR ---
SHIFT SUMMARY PATIENT HAD ONE EPISODE OF INCREASED WORK OF BREATHING; SEE NOTE. PATIENT HAS REQUIRED TWO DOSES OF MORPHINE 2MG FOR LT SIDED RIB PN WORSE WITH BREATHING. PRECEDEX STARTED TO HELP WITH ANXIETY. LUNG SOUNDS REMAINED WHEEZY THROUGHOUT SHIFT, MORE TIGHT ON THE RT SIDE. PATIENT'S SISTER CALLED FOR AN UPDATE AND SITUATION/UPDATE GIVEN. PATIENT REMAINED NPO THROUGHOUT SHIFT. LABS CAME BACK THIS AFTERNOON W/ NO NEW ORDERS FROM HOSPITALIST.
--- NOTE | 2021-09-02 19:00 | NUR ---
ASSUMED CARE OF PT, BEDSIDE REPORT RECEIVED. PT APPEARS TO BE RESTING QUIETLY, ROUSES TO VERBAL STIMULI, STATES THAT BREATHING IS FEELING OK AT THIS TIME. SATS ARE NOTED UPPER 90S WITH BIPAP 14/7 FIO2 40%, RESP RATE TEENS, NO VISIBLE INCREASED WORK OF BREATHING AT REST, SATS MAINTAIN WITH SPEECH. SINUS RHYTHM, 60S, PRECEDEX GTT AT 0.3 MCG/KG/HR, PRESSURES MAINTAINING STABLE, SKIN PWD, BRISK CAP REFILL, NO EDEMA NOTED. WILL MONITOR.
[2021-09-03 03:38] LABS: BASOPHILS ABSOLUTE AUTO 0.03 K/mm3 (0.00-0.23); BASOPHILS PERCENT AUTO 0 % (0-2); EOSINOPHILS ABSOLUTE AUTO 0.08 K/mm3 (0.00-0.68); EOSINOPHILS PERCENT AUTO 1 % (0-6); Hematocrit 43.5 % (37.0-53.0); IMMATURE GRAN ABSOLUTE AUTO 0.16 K/mm3 (0.00-0.10); IMMATURE GRAN PERCENT AUTO 1 % (0-1); LYMPHOCYTES ABSOLUTE AUTO 1.04 K/mm3 (0.84-5.20); LYMPHOCYTES PERCENT AUTO 8 % (21-46); MONOCYTES ABSOLUTE AUTO 0.97 K/mm3 (0.16-1.47); MONOCYTES PERCENT AUTO 7 % (4-13); Mean Corpuscular HGB 33.1 pg (26.0-34.0); Mean Corpuscular HGB Conc 34.5 g/dL (31.5-36.5); Mean Corpuscular Volume 96 fL (80-100); NEUTROPHILS ABSOLUTE AUTO 11.22 K/mm3 (1.96-9.15); NEUTROPHILS PERCENT AUTO 83 % (41-73); Platelet Count 259 K/mm3 (150-400); RDW Coefficient Variation 12.7 % (11.7-14.2); RDW Standard Deviation 45.5 fL (35.1-46.3); Red Blood Cell Count 4.53 M/mm3 (4.30-5.90)
[2021-09-03 03:55] LABS: Albumin, Blood 3.4 g/dL (3.4-5.0); Anion Gap 11 mmol/L (6-16); Blood Urea Nitrogen 19 mg/dL (8-24); Bun/Creatinine Ratio 21.4 (12.0-20.0); CO2, Blood 23 mmol/L (21-32); Chloride, Blood 104 mmol/L (98-108); Creatinine, Blood 0.89 mg/dL (0.60-1.20); Glomerular Filtration Rate >60 (60-); Glucose, Blood 146 mg/dL (70-99); Magnesium, Blood 2.5 mg/dL (1.6-2.4); Phosphorus, Blood 3.3 mg/dL (2.5-4.9); Potassium, Blood 4.1 mmol/L (3.5-5.5); Sodium, Blood 138 mmol/L (136-145)
--- NOTE | 2021-09-03 06:28 | NUR ---
PT RESTS QUIETLY MOST OF THIS SHIFT, PRECEDEX WAS TITRATED DOWN TO 0.1 MCG/KG/HR AND RESPIRATORY SUPPORT WAS DECREASED TO NASAL CANNULA EARLY IN THE SHIFT, PT TOLERATED WELL UNTIL 0230 AT WHICH TIME HE AWAKENED SUDDENLY WITH INCREASED PAIN TO LEFT RIBS, INCREASED WHEEZING, HEART RATE INCREASED AND PT WAS NOTED WITH MARKEDLY INCREASED WORK OF BREATHING AND RESPIRATORY RATE, RETURNED TO BIPAP FROM ROOM AIR, UDN ADMIN PER RT, PT CONTINUED TO COMPLAIN OF HIGH ANXIETY, ATIVAN 2 MG IV WAS ADMINISTERED WITH REPORTED LITTLE EFFECT, MORPHINE 2 MG IV WAS ADMINISTERED FOR AIR HUNGER AND PT REPORTED THAT THIS WORKED WELL. DR ZIEGLER CAME TO BEDSIDE TO OBSERVE PT AFTER MAGNESIUM IV WAS ORDERED, DISCUSSED PREVIOUS MAG LEVEL OF 2.8 AND ORDERS TO CANCEL MAG 2 GRAMS IV WERE OBTAINED. PT HAS CONTINUED TO REST QUIETLY WITH BIPAP IN PLACE AND STATES THAT BREATHING FEELS MUCH IMPROVED AGAIN.
--- NOTE | 2021-09-03 09:11 | NUR ---
ASSUMED CARE PATIENT LYING IN BED WITH EYES CLOSED; BIPAP IN PLACE ON 17/04 WITH RATE 14 AND FIO2 40%. SPO2 99-100% AND RR 16-20. LUNG SOUNDS ARE TIGHT T/O WITH SLIGHT WHEEZE. OCCASSIONAL NONPRODUCTIVE COUGH. A&O X 4, PUPILS 4MM EQUAL AND ROUND ENEDELIA W/ BRISK RESPONSE TO LIGHT; PRECEDEX @ 0.3MCG/KG/HR INTO LT FOREARM. NSR W/ RATE IN HIGH 50'S-LOW 60'S AND BP STABLE W/ MAPS GREATER THAN 65. STRONG PULSES IN ALL EXTREMITIES. BT HYPERACTIVE, CURRENTLY NPO D/T RESPIRATORY INSTABILITY. SKIN IS OVERALL C/D/I. BEDSIDE REPORT COMPLETED W/ CARO RN.
--- NOTE | 2021-09-03 11:18 | NUR ---
SWTICHED TO NC/PRECEDEX OFF/DIET PATIENT WAS TRANSITIONED FROM BIPAP TO NC 3LPM AT 0900. SPO2 MAINTAINED IN MID 90'S, RR 20'S, OCCASSIONAL NONPRODUCTIVE COUGH, NO ACCESSORY MUSCLE USE. LUNG SOUNDS ARE TIGHT/WHEEZING AND PATIENT IS ABLE TO REQUEST BREATHING TREATMENTS FOR THESE FEELINGS OF TIGHTNESS IN HIS LUNGS. PRECEDEX PLACED ON SB @ 0940. AT 1100 PATIENT DENIES FEELINGS OF ANXIETY, BUT COMPLAINS OF LT SIDED RIB PAIN WORSE WITH BREATHING. BREAKFAST PROVIDED TO PATIENT W/ BLUEBERRY MUFFIN AND ORANGE JUICE CONSUMED. PATIENT V/S REMAINED UNCHANGED FROM ABOVE AND LUNG SOUDNS ARE MORE WHEEZY AFTER BREATHING TREATMENT.
--- NOTE | 2021-09-03 12:43 | NUR ---
BACK ON BIPAP, COUGHING, ANXIETY WHEN GETTING READY FOR LUNCH AT 1145, PATIENT BEGAN COUGHING, BECOMING SOB, TACHYPNEIC IN 40'S, TACHYCARDIC IN 120'S-130'S. PATIENTS WAS PLACED ON BIPAP 14/7 FIO2 40% AND GIVEN ATIVAN 3MG IV. PATIENT NOW RESTING COMFORTABLY WITH EYES CLOSED, RR 18-22, SPO2 97, HR 96. DR. MOHAMUD UPDATED AND ORDERS FOR STATUS CHANGE FROM MEDICAL TO PCU GIVEN.
--- NOTE | 2021-09-03 15:39 | NUR ---
ANXIETY ATTACK PATIENT WOKE UP AND ALERTED THIS NURSE USING HIS CALL LIGHT. UPON ENTERING THE ROOM THE PATIENT WAS SITTING UP IN BED W/ WIDE EYES AND REQUESTED A BREATHING TREATMENT USING ONLY 2-3 WORD SENTENCES AT A TIME D/T SOB. RR IN 40'S, HR 130'S, SPO2 99-100%, AND ACCESSORY MUSCLE USE. PATIENT COMPLAINED OF LT SIDED RIB PN WORSE W/ DEEP BREATHING AND COUGH. PATIENT EXPERIENCING FREQUENT COUGHING W/ SPUTUM PRODUCTION OF THICK WHITE SPUTUM. ATIVAN 3MG IV GIVEN AND PAGED RT FOR BREATHING TREATMENT. PATIENT IS NOW RESTING IN BED; HR 99, RR 16, SPO2 96% AND DECREASED ACCESSORY MUSCLE USE.
--- NOTE | 2021-09-03 18:59 | NUR ---
SHIFT SUMMARY PATIENT HAD MULTIPLE EPISODES OF INCREASED WORK OF BREATHING AND ANXIETY, SEE NURSE NOTES ON THOSE EPISODES. ATIVAN 3MG AND BREATHING TREATMENTS GIVEN WITH GOOD RESPONSE. PATIENT ATTEMPTED TO EAT BREAKFAST AND ATE A BLUEBERRY MUFFIN AND ORANGE JUICE BEFORE GETTING SHORT OF BREATH. PATIENT TOLERATED DINNER BETTER, BUT NEEDED TO BE PLACED ON BIPAP AFTER EATING 10% AND BECOMING SHORT OF BREATH. VISITOR BROUGHT CHEESEBURGERS FROM [employer] THAT PATIENT ATE WITH NO PROBLEM. PATIENT WAS UP IN CHAIR FOR 2 HOURS WITH NO PROBLEM, ABLE TO STAND BY ASSIST TRANSFER WITH WEAKNESS. LIDOCAINE PATCH ORERED TO HELP CONTROL LT SIDED RIB PAIN AND MELATONIN ORDERED FOR SLEEP. STATUS CHANGED TO PCU. PRECEDEX REMAINED OFF SINCE 0940. BEDSIDE REPORT COMPLETED W/ SHINGLE SAWYER RN.
[2021-09-04 03:42] LABS: BASOPHILS ABSOLUTE AUTO 0.02 K/mm3 (0.00-0.23); BASOPHILS PERCENT AUTO 0 % (0-2); EOSINOPHILS PERCENT AUTO 0 % (0-6); Hematocrit 43.1 % (37.0-53.0); Hemoglobin 14.9 g/dL (13.5-17.5); IMMATURE GRAN ABSOLUTE AUTO 0.16 K/mm3 (0.00-0.10); IMMATURE GRAN PERCENT AUTO 1 % (0-1); LYMPHOCYTES ABSOLUTE AUTO 0.82 K/mm3 (0.84-5.20); LYMPHOCYTES PERCENT AUTO 7 % (21-46); MONOCYTES ABSOLUTE AUTO 1.36 K/mm3 (0.16-1.47); MONOCYTES PERCENT AUTO 11 % (4-13); Mean Corpuscular HGB 32.9 pg (26.0-34.0); Mean Corpuscular HGB Conc 34.6 g/dL (31.5-36.5); Mean Corpuscular Volume 95 fL (80-100); Mean Platelet Volume 9.1 fL (9.1-12.4); NEUTROPHILS ABSOLUTE AUTO 9.79 K/mm3 (1.96-9.15); NEUTROPHILS PERCENT AUTO 81 % (41-73); Platelet Count 257 K/mm3 (150-400); RDW Coefficient Variation 12.5 % (11.7-14.2); RDW Standard Deviation 44.1 fL (35.1-46.3); Red Blood Cell Count 4.53 M/mm3 (4.30-5.90); White Blood Cell Count 12.15 K/mm3 (4.00-11.30)
[2021-09-04 04:17] LABS: Albumin, Blood 3.1 g/dL (3.4-5.0); Anion Gap 7 mmol/L (6-16); Blood Urea Nitrogen 21 mg/dL (8-24); Bun/Creatinine Ratio 22.1 (12.0-20.0); CO2, Blood 26 mmol/L (21-32); Calcium, Blood 8.8 mg/dL (8.5-10.1); Chloride, Blood 108 mmol/L (98-108); Creatinine, Blood 0.95 mg/dL (0.60-1.20); Glomerular Filtration Rate >60 (60-); Glucose, Blood 127 mg/dL (70-99); Magnesium, Blood 2.1 mg/dL (1.6-2.4); Phosphorus, Blood 2.1 mg/dL (2.5-4.9); Potassium, Blood 4.4 mmol/L (3.5-5.5); Sodium, Blood 141 mmol/L (136-145)
--- NOTE | 2021-09-04 06:18 | NUR ---
PT WITH ONE EPISODE OF TACHYCARDIA, TACHYPNEA, DYSPNEA, AND ANXIETY, BIPAP REPLACED, MORPHINE 2 MG IV, UDN, RACEMIC EPINEPHRINE UDN, AND ATIVAN 2 MG IV ADMIN PRIOR TO IMPROVEMENT OF SYMPTOMS, PT TIDAL VOLUMES BETWEEN 1 AND 2 LITERS WITH RATE HIGH 20S LOW 30S, SATS MAINTAINED MID TO UPPER 90S THROUGHOUT. BIPAP USE OF APPROXIMATELY 1 HOUR THIS SHIFT. PT DID REMOVE OXYGEN AND MAINTAINED SATS OF 90-91% ON ROOM AIR WITH SLEEP.
--- NOTE | 2021-09-04 07:00 | NUR ---
ASSUME CARE: I have assumed care of pt. At this time he is resting on the bed with NC in place.
--- NOTE | 2021-09-04 11:56 | NUR ---
UPDATE: Pt up in chair on room air with oxygen sats in the mid 90's. Pt asking to be discharged from the hospital and would like the provider to come reassess him. Provider notified and will come see pt.
--- NOTE | 2021-09-04 12:30 | NUR ---
AMA: Pt has requested to leave AMA. Provider was at bedside and discussed risks vs. benefits as well as follow up. This RN discussed risks vs. benefits of leaving AMA with pt as well and had him sign the AMA form. He is ambulatory without assistance and was able to get himself dressed. IV was removed and pt walked out with SISAL PICKER.
--- NOTE | 2021-09-04 17:26 | NUR ---
Per Dr. Dow discharge appropriate for today (09/04/21). Patient discharged to his residence. Patient driving to his residence from the hospital. Tried to contact patient via cell phone to schedule follow up appointment with PCP. No opposition or barriers to discharge at this time. Patient to contact PCP if condition worsens if any questions on medication management. Will contact patient tomorrow to schedule follow up.
== END 2021-09-04 12:30 | disposition left against medical advice (07) | DRG 189 ==
LOC: ER 02:31 → PCU 04:47 → ICUE 09-01 19:29
PROVIDERS: Emergency Medicine; Family Medicine; Internal Medicine; ADMIT Internal Medicine
DX: J96.01 Acute respiratory failure with hypoxia (principal); J45.901 Unspecified asthma with (acute) exacerbation; B18.2 Chronic viral hepatitis C; D72.828 Other elevated white blood cell count; T38.0X5A Adverse effect of glucocorticoids and synthetic analogues, initial encounter; Z87.891 Personal history of nicotine dependence; Z79.899 Other long term (current) drug therapy; F41.9 Anxiety disorder, unspecified; Z20.822 Contact with and (suspected) exposure to COVID-19
CPT/HCPCS: 0241U; 36415; 71045; 80048; 80053; 80069; 81001; 83735; 83880; 85025; 85379; 86704; 86708; 86803; 87086; 87340; 94640; 94644; 94645; 94660; 94664; 94762; 96365; 96372; 96374; 96375; 96376; 99285-25; A9270; C9113; G0378; J0696; J1650; J2060; J2270; J2405; J2920; J2930; J3105; J3475; J7040; J7050

== ENCOUNTER 2022-11-09 11:24 | Inpatient (IN) | payer OTHER ==
[~2022-11-09] VITALS: Ht 182.9 cm; Wt 93.1 kg
[2022-11-09 11:48] LABS: BASOPHILS ABSOLUTE AUTO 0.03 K/mm3 (0.00-0.23); BASOPHILS PERCENT AUTO 0 % (0-2); EOSINOPHILS ABSOLUTE AUTO 0.04 K/mm3 (0.00-0.68); EOSINOPHILS PERCENT AUTO 0 % (0-6); Hematocrit 43.9 % (37.0-53.0); Hemoglobin 15.6 g/dL (13.5-17.5); IMMATURE GRAN ABSOLUTE AUTO 0.05 K/mm3 (0.00-0.10); IMMATURE GRAN PERCENT AUTO 1 % (0-1); LYMPHOCYTES ABSOLUTE AUTO 3.56 K/mm3 (0.84-5.20); LYMPHOCYTES PERCENT AUTO 37 % (21-46); MONOCYTES ABSOLUTE AUTO 1.04 K/mm3 (0.16-1.47); MONOCYTES PERCENT AUTO 11 % (4-13); Mean Corpuscular HGB 32.8 pg (26.0-34.0); Mean Corpuscular HGB Conc 35.5 g/dL (31.5-36.5); Mean Corpuscular Volume 92 fL (80-100); Mean Platelet Volume 8.5 fL (9.1-12.4); NEUTROPHILS ABSOLUTE AUTO 4.86 K/mm3 (1.96-9.15); NEUTROPHILS PERCENT AUTO 51 % (41-73); Platelet Count 298 K/mm3 (150-400); RDW Coefficient Variation 12.7 % (11.7-14.2); RDW Standard Deviation 43.3 fL (35.1-46.3); Red Blood Cell Count 4.75 M/mm3 (4.30-5.90); White Blood Cell Count 9.58 K/mm3 (4.00-11.30)
[2022-11-09 14:46] LABS: Albumin, Blood 3.5 g/dL (3.4-5.0); Bilirubin, Total 0.6 mg/dL (0.1-1.0); Bun/Creatinine Ratio 16.4 (12.0-20.0); Calcium, Blood 8.4 mg/dL (8.5-10.1); Creatinine, Blood 0.79 mg/dL (0.60-1.20); Globulin, Blood 3.4 g/dL (2.2-4.0); Potassium, Blood 3.4 mmol/L (3.5-5.5); Total Protein, Blood 6.9 g/dL (6.4-8.2)
[2022-11-09 14:49] LABS: Influenza A, PCR NEGATIVE (NEGATIVE); Influenza B, PCR NEGATIVE (NEGATIVE); Resp Syncytial Virus, PCR NEGATIVE (NEGATIVE); SARS-Cov-2 (COVID-19) PCR, MMC NEGATIVE (NEGATIVE)
--- NOTE | 2022-11-09 17:15 | NUR ---
SUMMARY PT ARRIVED TO UNIT FROM ED THIS AFTERNOON. TRANSFERRED INDEPENDENTLY FROM [facility] TO BED. AMBULATING IN ROOM INDEPENDENTLY. SO BEDSIDE. PT HAD AUDIBLE WHEEZING UPON ARRIVAL TO UNIT. RR 24, 02SATS HIGH 90S ON RA. BREATHING TX ADMINISTERED BY RT. PT REPORTED CHEST MUSCLES PAINFUL, OBTAINED ORDER FOR TYLENOL AND ADMINISTERED. MAG SULFATE INFUSING PER ORDERS. ORIENTED PT TO ROOM AND USE OF CALL LIGHT.
--- NOTE | 2022-11-09 18:51 | NUR ---
PT DECLINING [facility] AT THIS TIME STATED WILL CONSENT TO IT TOMORROW.
--- NOTE | 2022-11-10 00:48 | NUR ---
UPDATE: THIS RN CALLED TO BEDSIDE BY PCT @0015. PT WITH AUDITORY WHEEZES FROM OUTSIDE OF ROOM, PT WITH RETRACTIONS, RESP RATE 35-40. SPO2 >96%. STATES HE "CAN NOT BREATH." CALL PLACED TO SHAHIDA TAPIA AT BEDSIDE TO ADMINISTER ALBUTEROL TREATMENT. PCU AND ICU CHARGE RNS AT BESIDE. PT PLACED ON BIPAP 10/5 30%. CALL PLACED TO MD, NEW ORDERS RECEIVED FOR STAT MAG. ATIVAN GIVEN PER EMAR. WILL CONTINUE TO MONITOR.
[2022-11-10 05:03] LABS: BASOPHILS ABSOLUTE AUTO 0.01 K/mm3 (0.00-0.23); BASOPHILS PERCENT AUTO 0 % (0-2); EOSINOPHILS PERCENT AUTO 0 % (0-6); Hematocrit 40.9 % (37.0-53.0); Hemoglobin 14.3 g/dL (13.5-17.5); IMMATURE GRAN ABSOLUTE AUTO 0.13 K/mm3 (0.00-0.10); IMMATURE GRAN PERCENT AUTO 1 % (0-1); LYMPHOCYTES PERCENT AUTO 8 % (21-46); MONOCYTES ABSOLUTE AUTO 0.46 K/mm3 (0.16-1.47); MONOCYTES PERCENT AUTO 5 % (4-13); Mean Corpuscular HGB 32.9 pg (26.0-34.0); Mean Corpuscular Volume 94 fL (80-100); Mean Platelet Volume 8.9 fL (9.1-12.4); NEUTROPHILS ABSOLUTE AUTO 8.57 K/mm3 (1.96-9.15); NEUTROPHILS PERCENT AUTO 86 % (41-73); Platelet Count 271 K/mm3 (150-400); RDW Coefficient Variation 12.6 % (11.7-14.2); RDW Standard Deviation 43.7 fL (35.1-46.3); Red Blood Cell Count 4.35 M/mm3 (4.30-5.90); White Blood Cell Count 9.97 K/mm3 (4.00-11.30)
--- NOTE | 2022-11-10 05:22 | NUR ---
SHIFT SUMMARY PATIENT ALERT AND ORIENTED X4. PATIENT REPORTS FEELING CHEST PAIN ATTRIBUTING IT TO HIS WORK OF BREATHING OVER THE LAST FEW DAYS. VITAL SIGNS STABLE. PATIENT INDEPENDENT IN THE ROOM. COARSE INSPIRATORY AND EXPIRATORY WHEEZING NOTED WHEN ASCULTATING PATIENT'S LUNGS. PATIENT PLACED ON THE BIPAP TEMPORARILY WITH ALBUTERAL NEBS BY RT FOR RESPIRATORY DISTRESS. PATIENT ADMINISTERED STAT DOSE OF MAGNESIUM AND TERBUTALINE PER EMAR. PATIENT CURRENTLY ON ROOM AIR, REPORTS THAT HE IS BREATHING MUCH BETTER. DR BASS ASSESSED THE PATIENT, HAD ADJUSTMENTS MADE TO RESPIRATORY MEDICATIONS AND MADE PATIENT NPO FOR 8 HOURS. PATIENT SINUS RHYTHM IN THE 90'S ON TELEMETRY. WILL CONTINUE TO MONITOR. CALL LIGHT WTIHIN REACH.
[2022-11-10 05:37] LABS: Albumin, Blood 3.2 g/dL (3.4-5.0); Albumin/Globulin Ratio 0.9 (0.8-1.8); Bilirubin, Total 0.3 mg/dL (0.1-1.0); Bun/Creatinine Ratio 20.9 (12.0-20.0); Calcium, Blood 8.5 mg/dL (8.5-10.1); Creatinine, Blood 0.77 mg/dL (0.60-1.20); Globulin, Blood 3.6 g/dL (2.2-4.0); Magnesium, Blood 2.4 mg/dL (1.6-2.4); Potassium, Blood 3.2 mmol/L (3.5-5.5); Total Protein, Blood 6.8 g/dL (6.4-8.2)
--- NOTE | 2022-11-10 07:16 | NUR ---
ASSUMED CARE: PT RESTING QUIETLY AT THIS TIME. RT AT BEDSIDE FINISHING UP BREATHING TX. NSR IN 80S ON TELE. NO ACUTE NEEDS OR CONCERNS AT THIS TIME.
--- NOTE | 2022-11-10 13:01 | NUR ---
PT GOT UP TO USE RESTROOM AND STARTED COUGHING. CALLED STAFF TO ROOM AND BEGAN HAVING SEVER WHEEZING EPISODE. COULD NOT SPEAK IN FULL SENTENCES AND HR INCREASED TO 140S. O2 SATURATION 97%. PLACED PT ON BIPAP WITH SETTINGS 10/5 AND 30% FIO2. CALLED RT TO BEDSIDE. PT WAS GIVEN 1 HOUR LONG NEB TREATMENT. CALL TO DR BURCH WHO CAME TO BEDSIDE AND ADVISED FOR 0.5MG IV ATIVAN TO BE GIVEN NOW. PT HR CURRENTLY 123. RESPIRATORY RATE AT 23. PT C/O TINGLING IN FINGERS BUT STATES IMPROVING. RN AT BEDSIDE.
--- NOTE | 2022-11-10 17:47 | NUR ---
SHIFT SUMMARY: PT HAD ONE ASTHMA ATTACK TODAY AFTER GETTING UP TO RESTROOM. BIPAP PLACED AND WAS MEDICATED WITH 0.5MG ATIVAN, MAGNESIUM AND HOUR LONG NEBULIZER TREATMENT. EDUCATED BY , RT, AND THIS RN REGARDING TRIGGERS TO AVOID AND LIFE STYLE CHANGES TO MAKE IN ORDER TO PREVENT ASTHMA ATTACKS. NOTE LEFT WITH DISPATCHER TUGBOAT FOR ABSTRACT SEARCHER TO ASSIST PT IN FINDING PCP. S.O. AT BEDSIDE AT THIS TIME. NO ACUTE NEEDS AT THIS TIME.
[2022-11-11 03:53] LABS: BASOPHILS ABSOLUTE AUTO 0.03 K/mm3 (0.00-0.23); BASOPHILS PERCENT AUTO 0 % (0-2); EOSINOPHILS PERCENT AUTO 0 % (0-6); Hematocrit 40.7 % (37.0-53.0); Hemoglobin 14.2 g/dL (13.5-17.5); IMMATURE GRAN ABSOLUTE AUTO 0.22 K/mm3 (0.00-0.10); IMMATURE GRAN PERCENT AUTO 1 % (0-1); LYMPHOCYTES ABSOLUTE AUTO 1.53 K/mm3 (0.84-5.20); LYMPHOCYTES PERCENT AUTO 10 % (21-46); MONOCYTES ABSOLUTE AUTO 1.04 K/mm3 (0.16-1.47); MONOCYTES PERCENT AUTO 7 % (4-13); Mean Corpuscular HGB 32.8 pg (26.0-34.0); Mean Corpuscular HGB Conc 34.9 g/dL (31.5-36.5); Mean Corpuscular Volume 94 fL (80-100); Mean Platelet Volume 8.7 fL (9.1-12.4); NEUTROPHILS ABSOLUTE AUTO 12.71 K/mm3 (1.96-9.15); NEUTROPHILS PERCENT AUTO 82 % (41-73); Platelet Count 268 K/mm3 (150-400); RDW Coefficient Variation 12.7 % (11.7-14.2); RDW Standard Deviation 44.3 fL (35.1-46.3); Red Blood Cell Count 4.33 M/mm3 (4.30-5.90); White Blood Cell Count 15.53 K/mm3 (4.00-11.30)
[2022-11-11 04:08] LABS: Anion Gap 6 mmol/L (6-16); Blood Urea Nitrogen 14 mg/dL (8-24); Bun/Creatinine Ratio 19.8 (12.0-20.0); CO2, Blood 24 mmol/L (21-32); Calcium, Blood 8.2 mg/dL (8.5-10.1); Chloride, Blood 109 mmol/L (98-108); Creatinine, Blood 0.71 mg/dL (0.60-1.20); Glomerular Filtration Rate 124 (60-); Glucose, Blood 155 mg/dL (70-99); Magnesium, Blood 2.1 mg/dL (1.6-2.4); Phosphorus, Blood 3.1 mg/dL (2.5-4.9); Sodium, Blood 139 mmol/L (136-145)
--- NOTE | 2022-11-11 05:37 | NUR ---
SHIFT SUMMARY PATIENT ALERT AND ORIENTED X4. VITAL SIGNS STABLE. PATIENT CONTINUES ON ROOM AIR, NO COMPLAINTS OF SHORTNESS OF BREATH. LUNG SOUNDS IMPROVING, COARSENESS HAS DISSIPATED, JUST WHEEZY NOW. CHEST PAIN FROM WORK OF BREATHING STILL PRESENT. PATIENT SLEPT ALL NIGHT. NO ACUTE ISSUES NOTED. WILL CONTINUE TO MONITOR. CALL LIGHT WITHIN REACH.
[2022-11-11] MEDS ORDERED: AIRDUO DIGIHAL1 EAC2 INH (10:00)
[2022-11-11] MEDS ORDERED: LORA10ER PO (10:01)
[2022-11-11] MEDS ORDERED: MONT10T PO (10:02)
[2022-11-11] MEDS ORDERED: PRED20 PO (10:03)
[2022-11-11] MEDS ORDERED: IPRAT-ALBUT 0.5-3 ML INH (10:05)
[2022-11-11] MEDS ORDERED: ALBU90OI INH (10:05)
--- NOTE | 2022-11-11 10:46 | NUR ---
PT DISCHARGED TO HOME, PRESCRIPTION SENT TO [facility]. DISCHARGE ORDERS AND INSTRUCTIONS DISCLOSED WITH THE PT, PT VERBALIZED UNDERSTANDING. PT REFERRED TO [facility] TO ESTABLISH NEW PCP. PT WAS GIVEN MORNING MEDS AND BREATHING TX PER RT. PT DENIES ANY KIND OF PAIN/DISCOMFORT. PT AMBULATORY AND INDEPENDENT IN THE ROOM. 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 ALL BELONGINGS SENT WITH THE PT
== END 2022-11-11 10:34 | disposition home or self-care (01) | DRG 193 ==
LOC: ER 11:24 → PCU 12:34
PROVIDERS: Emergency Medicine; Family Medicine; ADMIT Internal Medicine
PROC: 5A09357 Assistance with Respiratory Ventilation, Less than 24 Consecutive Hours, Continuous Positive Airway Pressure (ICD-10-PCS; principal; 2022-11-09)
DX: J18.9 Pneumonia, unspecified organism (principal); J96.01 Acute respiratory failure with hypoxia; J45.51 Severe persistent asthma with (acute) exacerbation; Z20.822 Contact with and (suspected) exposure to COVID-19; B18.2 Chronic viral hepatitis C; F17.210 Nicotine dependence, cigarettes, uncomplicated; F19.10 Other psychoactive substance abuse, uncomplicated; Z91.199 Patient's noncompliance with other medical treatment and regimen due to unspecified reason; Z28.21 Immunization not carried out because of patient refusal
CPT/HCPCS: 0241U; 36415; 71045; 80053; 80069; 83735; 83880; 84145; 85025; 93005; 93010; 94640; 94645; 94660; 94664; 94762; 96365; 96367; 96375; 99285-25; A9270; J0456; J0696; J1650; J2060; J2930; J3105; J3475; J3480; J7030; J7050; J7512; J7626

== ENCOUNTER 2023-02-03 19:48 | Inpatient (IN) | payer OTHER ==
[~2023-02-03] VITALS: Ht 185.4 cm; Wt 95.2 kg
[~2023-02-03 19:48] MED LIST changes: +AIRDUO DIGIHAL1 EAC2 INH; +IPRAT-ALBUT 0.5-3 ML INH; +LORA10ER PO; +MONT10T PO
[2023-02-03 23:00] VITALS: BP 136/70
[2023-02-03 23:12] VITALS: BP 135/68
[2023-02-03 23:15] VITALS: BP 139/78
--- NOTE | 2023-02-04 00:43 | NUR ---
TRANSFER CARE NOTE RECEIVED REPORT FROM ED RN TONY WATSON, PT ARRIVED IN PCU @ ~2305 YESTERDAY PM. PT TRANSFERRED FROM [facility] TO PCU BED W/O ASSISTANCE ON RA. A/Ox4 AND COOPERATIVE WITH CARE PROVIDED BY STAFF. ANSWERS QUESTIONS APPROPRAITELY AND ABLE TO MAKE HIS NEEDS KNOWN. MAINTAINED SPO2 >94% ON RA WITH NO RESPIRATORY DISTRESS NOTED UPON ARRIVAL. PT C/O SOME SOB WHEN ABULATING, BUT ABLE TO MAINTAIN CONVERSATION WITH FULL SENTENCES WHILE IN BED. EXP. WHEEZES HEARD T/O ALL LUNG QUISPE. RESPONDS WELL TO SCHEDULED BREATHING TREATMENT WELL IV STEROIDS. CARDIAC BRAVO, PT IS SR-ST 90-100'S WITH NO CP PRESSURE REPORTED. C/O SOME CHEST TIGHTNESS HOWEVER. NO C/O N/V/D. NO NEW ORDERS AT THIS TIME, EPIFANIO CALDERON OF THIS NOTE.
[2023-02-04 03:45] VITALS: BP 136/78
--- NOTE | 2023-02-04 06:18 | NUR ---
SHIFT SUMMARY A/Ox4 AND COOPERATIVE WITH CARE PROVIDED BY MEMBERS OF STAFF. ANSWERS QUESTIONS APPROPRIATELY AND ABLE TO MAKE HIS NEEDS KNOWN. NO ACUTE CHANGES SINCE TRANSFER OF CARE NOTE. SEE NOTE FOR MORE DETAILS. REMAINS ON RA AND RESPONDS WELL TO BREATHING TREATMENTS WELL IV STEROIDS. NO NEW ORDERS AT THIS TIME, WILL REPORT TO ONCOMING RN. EPIFANIO CALDERON OF THIS NOTE
[2023-02-04 07:29] VITALS: BP 150/79
--- NOTE | 2023-02-04 10:57 | NUR ---
DAY SHIFT SUMMARY REPORT RECIEVED AT SHIFT START. PATIENT WAS THEN GREETED AND ASSESSED. MEDPASS WAS THEN COMPLETED WITH EDUCATION GIVEN ON ASTHMA AND SMOKING.
[2023-02-04 11:17] VITALS: BP 128/60
[2023-02-04 17:24] VITALS: BP 145/83
[2023-02-04 20:51] VITALS: BP 119/63
[2023-02-05 00:10] VITALS: BP 133/66
[2023-02-05 03:14] VITALS: BP 127/55
--- NOTE | 2023-02-05 06:15 | NUR ---
INSECTICIDE MAKER SUMMARY ASSUMED CARE OF THE PT AT 1900. HE IS ALERT AND ORIENTED X4, PLEASANT AND COOPERATIVE. PT INDEPENDENT IN THE ROOM. HE HAS NOT HAD ANY EPISODES OF SHORTNESS OF BREATH OR DIFFICULTY BREATHING THIS SHIFT. PT RECEIVING BREATHING TREATMENTS AND STEROIDS. VITAL SIGNS HAVE BEEN STABLE. PT IS SINUS IN THE 80S AND 90S ON TELE. CHEST TIGHTNESS FROM PREVIOUS EXACERBATION HAS RESOLVED. OXYGEN SATURATION REMAINS >92% ON RA.
[2023-02-05 07:34] VITALS: BP 118/76
--- NOTE | 2023-02-05 07:40 | NUR ---
AM Assessment: Pt sitting up at edge of bed. Audible wheezing heard from across the room, during auscultation exp wheezing and tightness noted in all lobes. Pt states that his breathing is much better than it was when he was admitted. Denies wanting breathing treatment at this time. HR NSR to ST, rate currently 101 per tele. BT positive. PUlses palp. Pt denies pain. Call light in reach. Will continue to monitor.
[2023-02-05 15:23] VITALS: BP 139/72
--- NOTE | 2023-02-05 15:30 | NUR ---
TRANSFER NOTE: Report called to medical floor RN. VSS at this time. Pt denies SOB. Pt ambulated up to room 342 with FACE CLEANER. Stable at time of transfer.
--- NOTE | 2023-02-05 17:22 | NUR ---
SHIFT SUMMARY PT UP FROM PCU. ALERT AND ORIENTED, CALLS APPROPRIATELY. PT INDEPENDENT IN ROOM, REMAINS ON RA. CONTINUE IV STEROIDS. PLANS FOR POSSIBLE D/C HOME TOMORROW. WILL CONTINUE TO MONITOR. CALL LIGHT WITHIN REACH.
[2023-02-05 21:50] VITALS: BP 124/52
[2023-02-06 06:33] VITALS: BP 139/65
[2023-02-06 07:32] VITALS: BP 129/73
--- NOTE | 2023-02-06 12:20 | NUR ---
PT NOT IN ROOM WHEN LUNCH TRAYS WERE BROUGHT. PT GIVEN TIME TO SEE IF HE WAS JUST AMBULATING AROUND [place]AN. PT STILL NOT SEEN FOLLOWING 10 MIN[address] ATTEMPTED TO CONTACT DR. SIBLEY, NO ANSWER, WILL CONTINUE TO TRY. IV REMOVED PREVIOUSLY IN PREPARATION FOR D/C.
[2023-02-06] MEDS ORDERED: Nicoderm Cq1 EAC1 TOP (12:52)
== END 2023-02-06 12:47 | disposition home or self-care (01) | DRG 189 ==
LOC: ER 19:48 → PCU 19:49 → MEDS 02-05 15:41
PROVIDERS: ADMIT Student in an Organized Health Care Education/Training Program
DX: J96.01 Acute respiratory failure with hypoxia (principal); J45.51 Severe persistent asthma with (acute) exacerbation; F12.10 Cannabis abuse, uncomplicated; F17.210 Nicotine dependence, cigarettes, uncomplicated; B18.2 Chronic viral hepatitis C; Z91.148 Patient's other noncompliance with medication regimen for other reason; Z71.6 Tobacco abuse counseling; Z71.51 Drug abuse counseling and surveillance of drug abuser; Z79.899 Other long term (current) drug therapy; Z79.52 Long term (current) use of systemic steroids; Z79.51 Long term (current) use of inhaled steroids; Z87.01 Personal history of pneumonia (recurrent)
CPT/HCPCS: 71045; 93005; 93010; 94640; 94644; 94645; 94664; 94760; 94762; 96365; 96372; 96375; 96376; 99285-25; 99406; A9270; G0378; J1650; J2930; J3475

== ENCOUNTER → 2023-05-11 | Outpatient (CLI) | payer OTHER ==
[~2023-05-11] MED LIST changes: +Nicoderm Cq1 EAC1 TOP
[2023-05-11 12:24] LABS: BASOPHILS ABSOLUTE AUTO 0.05 K/mm3 (0.00-0.23); BASOPHILS PERCENT AUTO 1 % (0-2); EOSINOPHILS ABSOLUTE AUTO 0.52 K/mm3 (0.00-0.68); EOSINOPHILS PERCENT AUTO 8 % (0-6); Hematocrit 47.7 % (37.0-53.0); Hemoglobin 16.7 g/dL (13.5-17.5); IMMATURE GRAN ABSOLUTE AUTO 0.06 K/mm3 (0.00-0.10); IMMATURE GRAN PERCENT AUTO 1 % (0-1); LYMPHOCYTES ABSOLUTE AUTO 2.38 K/mm3 (0.84-5.20); LYMPHOCYTES PERCENT AUTO 35 % (21-46); MONOCYTES ABSOLUTE AUTO 0.83 K/mm3 (0.16-1.47); MONOCYTES PERCENT AUTO 12 % (4-13); Mean Corpuscular HGB 33.4 pg (26.0-34.0); Mean Corpuscular Volume 95 fL (80-100); Mean Platelet Volume 8.8 fL (9.1-12.4); NEUTROPHILS ABSOLUTE AUTO 2.88 K/mm3 (1.96-9.15); NEUTROPHILS PERCENT AUTO 43 % (41-73); Platelet Count 230 K/mm3 (150-400); RDW Coefficient Variation 12.9 % (11.7-14.2); RDW Standard Deviation 45.3 fL (35.1-46.3); White Blood Cell Count 6.72 K/mm3 (4.00-11.30)
[2023-05-11 12:33] LABS: Albumin, Blood 3.8 g/dL (3.4-5.0); Albumin/Globulin Ratio 0.9 (0.8-1.8); Bilirubin, Total 0.7 mg/dL (0.1-1.0); Bun/Creatinine Ratio 13.1 (12.0-20.0); Creatinine, Blood 0.84 mg/dL (0.60-1.20); Globulin, Blood 4.3 g/dL (2.2-4.0); Potassium, Blood 4.3 mmol/L (3.5-5.5); Total Protein, Blood 8.1 g/dL (6.4-8.2)
== END ==
LOC: LAB SHORT 12:18 → LAB 12:18
PROVIDERS: Physician Assistant Medical
DX: R10.12 Left upper quadrant pain (principal)
CPT/HCPCS: 80053; 83690; 85025

== ENCOUNTER 2023-10-17 08:35 | Emergency (ER) | payer OTHER ==
[~2023-10-17] VITALS: Ht 185.4 cm; Wt 86.2 kg
[2023-10-17 10:00] VITALS: BP 152/96
[2023-10-17] MEDS ORDERED: PRED20 PO (11:10)
== END 2023-10-17 11:29 | disposition home or self-care (01) ==
LOC: ER 08:35
DX: J45.901 Unspecified asthma with (acute) exacerbation (principal); F17.210 Nicotine dependence, cigarettes, uncomplicated; Z79.51 Long term (current) use of inhaled steroids; Z79.899 Other long term (current) drug therapy
CPT/HCPCS: 71045; 94644; 94645; 94664; 96365; 96375; 99285-25; J1100; J3475

== ENCOUNTER 2023-10-19 06:23 | Emergency (ER) | payer OTHER ==
[~2023-10-19] VITALS: Ht 185.4 cm; Wt 90.7 kg
[2023-10-19] MEDS ORDERED: FLUT1DIS5 INH (07:01)
[2023-10-19 07:36] LABS: Influenza A, PCR NEGATIVE (NEGATIVE); Influenza B, PCR NEGATIVE (NEGATIVE); Resp Syncytial Virus, PCR NEGATIVE (NEGATIVE); SARS-Cov-2 (COVID-19) PCR, MMC NEGATIVE (NEGATIVE)
[2023-10-19] MEDS ORDERED: ALBU90OI INH ×2 (09:10→09:24)
[2023-10-19] MEDS ORDERED: METPRE4DP PO ×2 (09:10→09:24)
[2023-10-19] MEDS ORDERED: ALBU2.5V5 NEB ×2 (09:10→09:24)
[2023-10-19 09:15] VITALS: BP 121/75
== END 2023-10-19 09:29 | disposition home or self-care (01) ==
LOC: ER 06:23
PROVIDERS: Emergency Medicine
DX: J45.901 Unspecified asthma with (acute) exacerbation (principal); F17.210 Nicotine dependence, cigarettes, uncomplicated; Z20.822 Contact with and (suspected) exposure to COVID-19
CPT/HCPCS: 0241U; 71045; 94640; 94644; 94664; 99285-25

== ENCOUNTER 2025-04-13 00:47 | Emergency (ER) | payer OTHER ==
[~2025-04-13] VITALS: Ht 185.4 cm; Wt 97.5 kg
[~2025-04-13 00:47] MED LIST changes: +ALBU2.5V5 NEB; +FLUT1DIS5 INH; +METPRE4DP PO
[2025-04-13 01:03] LABS: BASOPHILS ABSOLUTE AUTO 0.06 K/mm3 (0.00-0.23); BASOPHILS PERCENT AUTO 1 % (0-2); EOSINOPHILS ABSOLUTE AUTO 0.80 K/mm3 (0.00-0.68); EOSINOPHILS PERCENT AUTO 8 % (0-6); Hematocrit 43.6 % (37.0-53.0); Hemoglobin 15.6 g/dL (13.5-17.5); IMMATURE GRAN ABSOLUTE AUTO 0.03 K/mm3 (0.00-0.10); IMMATURE GRAN PERCENT AUTO 0 % (0-1); LYMPHOCYTES ABSOLUTE AUTO 3.75 K/mm3 (0.84-5.20); LYMPHOCYTES PERCENT AUTO 38 % (21-46); MONOCYTES ABSOLUTE AUTO 0.91 K/mm3 (0.16-1.47); MONOCYTES PERCENT AUTO 9 % (4-13); Mean Corpuscular HGB Conc 35.8 g/dL (31.5-36.5); Mean Corpuscular Volume 93 fL (80-100); NEUTROPHILS ABSOLUTE AUTO 4.28 K/mm3 (1.96-9.15); NEUTROPHILS PERCENT AUTO 44 % (41-73); NRBC ABSOLUTE 0.00 K/mm3 (0.00-0.02); NRBC Auto 0.0 /100 WBC (0.0-0.2); Platelet Count 241 K/mm3 (150-400); RDW Coefficient Variation 12.7 % (11.7-14.2); RDW Standard Deviation 43.7 fL (35.1-46.3)
[2025-04-13] MEDS ORDERED: Ketorolac Tromethamine 15mg Vial IV ONE (01:45)
[2025-04-13] MEDS ORDERED: NS 1,000 ML IV SCH (01:45)
[2025-04-13 01:53] LABS: Alanine Aminotransfer (ALT/SGP 66.0 U/L (12-78); Albumin, Blood 3.4 g/dL (3.4-5.0); Albumin/Globulin Ratio 0.8 (0.8-1.8); Anion Gap 7.0 mmol/L (3-11); Aspartate Aminotrans (AST/SGOT 113.0 U/L (12-37); Bilirubin, Total 0.4 mg/dL (0.1-1.0); Blood Urea Nitrogen 15.0 mg/dL (8-24); CO2, Blood 25.0 mmol/L (21-32); Calcium, Blood 8.1 mg/dL (8.5-10.1); Chloride, Blood 110.0 mmol/L (98-108); Creatinine, Blood 0.76 mg/dL (0.60-1.20); Globulin, Blood 4.2 g/dL (2.2-4.0); Glucose, Blood 136.0 mg/dL (70-99); Potassium, Blood 4.0 mmol/L (3.5-5.5); Sodium, Blood 138.0 mmol/L (136-145); Total Protein, Blood 7.6 g/dL (6.4-8.2)
[2025-04-13 03:23] LABS: Source, Urine Clean Catch
[2025-04-13 03:28] LABS: Bilirubin, Urine Neg (Neg); Glucose Qualitative, Urine Neg (Neg); Ketones, Urine Neg (Neg); Leukocyte Esterase, Urine Neg (Neg); Protein, Urine 1+ (Neg); Specific Gravity, Urine 1.030 (1.003-1.022); Urobilinogen, Urine NORM (Normal)
[2025-04-13 03:32] LABS: Color, Urine Yellow (P-Yellow)
[2025-04-13 03:57] VITALS: BP 127/70
== END 2025-04-13 03:54 | disposition home or self-care (01) ==
LOC: ER 00:47
PROVIDERS: Emergency Medicine
DX: R10.31 Right lower quadrant pain (principal); J45.909 Unspecified asthma, uncomplicated; F17.210 Nicotine dependence, cigarettes, uncomplicated; Z79.51 Long term (current) use of inhaled steroids; Z79.899 Other long term (current) drug therapy
CPT/HCPCS: 74177; 80053; 85025; 87086; 96374-59; 99285-25; J1885; J7030; Q9967

== ENCOUNTER → 2025-07-19 | Outpatient (CLI) | payer OTHER | LOC: LAB 12:26 → LAB SHORT 12:26 | DX: L72.9 Follicular cyst of the skin and subcutaneous tissue, unspecified (principal) | CPT/HCPCS: 87070; 87075; 87205 ==